=== PATIENT | male | born 1985 ===

== ENCOUNTER 2017-12-08 09:53 | Emergency (ER) | payer OTHER ==
[2017-12-08] MEDS ORDERED: Sodium Chloride 0.9% 10 ML Syringe FLUSH PRN (10:23)
[2017-12-08] MEDS ORDERED: Sodium Chloride 0.9% 1,000 ML IV STA (10:23)
[2017-12-08] MEDS ORDERED: Ketorolac 30 MG/ML SDV IVPUSH ONE (10:24)
[2017-12-08] MEDS ORDERED: Ibuprofen 800 MG Tab PO ONE (10:57)
--- NOTE | 2017-12-08 10:59 | EDM.PDOC ---
ED HPI GENERAL MEDICAL PROBLEM - General Chief Complaint: General Stated Complaint: BACK PAIN - NAUSEA,CHILLS Time Seen by Provider: 12/08/17 10:13 Source of Information: Reports: Patient History Limitations: Reports: No Limitations - History of Present Illness INITIAL COMMENTS - FREE TEXT/NARRATIVE: The patient presents with a fever, chills, generalized weakness and low back pain. This all started about 5 days ago. He is building a house and he thought initially his back hurt from that. He then developed the fever and chills. He gets night sweats. He has no headache but he does have some neck pain at times. He has no cough. He has no abdominal pain, nausea or vomiting. He does not have much of an appetite. He has no medical problems. He has no dysuria. He has been outside a lot lately. He is worried this could be [place]. He also has joint pain. His elbows hurt and his knees at times. Onset: Gradual Duration: Day(s): (5) Location: Reports: Back Quality: Reports: Sharp Severity: Moderate Improves with: Reports: Immobilization Worsens with: Reports: Movement Context: Reports: Activity (He is currently building a house) Associated Symptoms: Reports: Fever/Chills, Nausea/Vomiting. Denies: Chest Pain , Cough, Headaches, Shortness of Breath Back Pain Score (Numeric/FACES): 8 - Related Data Allergies Allergy/AdvReac Type Severity Reaction Status Date / Time Sulfa (Sulfonamide Allergy Cannot Verified 12/08/17 10:02 Antibiotics) Remember Home Meds: Home Meds . [No Known Home Meds] 12/08/17 [History] Past Medical History - Past Health History Medical/Surgical History: Denies Medical/Surgical History Social & Family History - Tobacco Use Smoking Status *Q: Never Smoker Second Hand Smoke Exposure: No - Caffeine Use Caffeine Use: Reports: Coffee - Recreational Drug Use Recreational Drug Use: No ED ROS GENERAL - Review of Systems Review Of Systems: See Below Constitutional: Reports: Fever, Chills, Malaise, Weakness, Fatigue, Night Sweats HEENT: Reports: No Symptoms Respiratory: Reports: No Symptoms Cardiovascular: Reports: No Symptoms Endocrine: Reports: No Symptoms GI/Abdominal: Reports: No Symptoms : Reports: No Symptoms ED EXAM, GENERAL - Physical Exam Exam: See Below Exam Limited By: No Limitations General Appearance: Alert, No Apparent Distress Ears: Normal External Exam Nose: Normal Inspection Head: Atraumatic, Normocephalic Neck: Normal Inspection Respiratory/Chest: No Respiratory Distress, Lungs Clear, Normal Breath Sounds Cardiovascular: Regular Rate, Rhythm, No Edema, No Murmur GI/Abdominal: Soft, Non-Tender, No Organomegaly, No Mass Back Exam: Other (Mild pain upon palpation to his low back) Extremities: Normal Inspection, Non-Tender Neurological: Alert, Oriented, No Motor/Sensory Deficits Course - Vital Signs Last Recorded V/S: Last Vital Signs Temp 98.7 F 12/08/17 09:57 Pulse 93 12/08/17 09:57 Resp 18 12/08/17 09:57 BP Pulse Ox 100 12/08/17 09:57 - Orders/Labs/Meds Orders: Active Orders 24 hr Category Date Time Status Peripheral IV Care [RC] . DIRECTED Care 12/08/17 10:24 Active Chest 2V [CR] Stat Exams 12/08/17 10:23 Taken Lumbar Spine 2 or 3V [CR] Stat Exams 12/08/17 10:24 Taken UA W/MICROSCOPIC [URIN] Stat Lab 12/08/17 12:10 Ordered [place] VIRUS ANTIBODY,SERUM [REF] Stat Lab 12/08/17 10:30 Received Sodium Chloride 0.9% [Saline Flush] Med 12/08/17 10:23 Active 10 ml FLUSH ASDIRECTED PRN Peripheral IV Insertion Adult [OM.PC] Stat Oth 12/08/17 10:23 Ordered Medication Orders Sodium Chloride (Saline Flush) 10 ml FLUSH ASDIRECTED PRN PRN Reason: Keep Vein Open Last Admin: 12/08/17 10:48 Dose: 10 ml Labs: Laboratory Tests 12/08/17 12/08/17 12/08/17 Range/Units 10:30 10:30 10:30 WBC 2.78 L (4.23-9.07) K/mm3 RBC 5.02 (4.63-6.08) M/mm3 Hgb 14.5 (13.7-17.5) gm/L Hct 42.5 (40.1-51.0) % MCV 84.7 (79.0-92.2) fl MCH 28.9 (25.7-32.2) pg MCHC 34.1 (32.2-35.5) g/dl RDW Std Deviation 41.1 (35.1-43.9) fL Plt Count 162 L (163-337) K/mm3 MPV 9.8 (9.4-12.3) fl Neut % (Auto) 58.0 (34.0-67.9) % Lymph % (Auto) 24.8 (21.8-53.1) % [place] % (Auto) 16.5 H (5.3-12.2) % Eos % (Auto) 0.7 L (0.8-7.0) Baso % (Auto) 0.0 L (0.1-1.2) % Neut # (Auto) 1.61 L (1.78-5.38) K/mm3 Lymph # (Auto) 0.69 L (1.32-3.57) K/mm3 [place] # (Auto) 0.46 (0.30-0.82) K/mm3 Eos # (Auto) 0.02 L (0.04-0.54) K/mm3 Baso # (Auto) 0.00 L (0.01-0.08) K/mm3 Manual Slide Review Abnormal smear Sodium 136 (136-145) mEq/L Potassium 3.7 (3.5-5.1) mEq/L Chloride 99 (98-107) mEq/L Carbon Dioxide 30 (21-32) mEq/L Anion Gap 10.7 (5-15) BUN 12 (7-18) mg/dL Creatinine 1.0 (0.7-1.3) mg/dL Est Cr Clr Drug Dosing 99.15 mL/min Estimated GFR (MDRD) > 60 (>60) mL/min BUN/Creatinine Ratio 12.0 L (14-18) Glucose 83 (74-106) mg/dL Calcium 8.5 (8.5-10.1) mg/dL Total Bilirubin 0.3 (0.2-1.0) mg/dL AST 255 H (15-37) U/L ALT 358 H (16-63) U/L Alkaline Phosphatase 118 H (46-116) U/L Total Protein 8.0 (6.4-8.2) g/dl Albumin 4.1 (3.4-5.0) g/dl Globulin 3.9 gm/dL Albumin/Globulin Ratio 1.1 (1-2) Urine Color (Yellow) Urine Appearance (Clear) Urine pH (5.0-8.0) Ur Specific [place] (1.005-1.030) Urine Protein (Negative) Urine Glucose (UA) (Negative) Urine Ketones (Negative) Urine Occult Blood (Negative) Urine Nitrite (Negative) Urine Bilirubin (Negative) Urine Urobilinogen (0.2-1.0) Ur Leukocyte Esterase (Negative) Urine RBC (0-5) /hpf Urine WBC (0-5) /hpf Ur Epithelial Cells (0-5) /hpf Urine Bacteria (FEW) /hpf Urine Mucus (FEW) /hpf Monoscreen Negative (NEGATIVE) 12/08/17 Range/Units 12:10 WBC (4.23-9.07) K/mm3 RBC (4.63-6.08) M/mm3 Hgb (13.7-17.5) gm/L Hct (40.1-51.0) % MCV (79.0-92.2) fl MCH (25.7-32.2) pg MCHC (32.2-35.5) g/dl RDW Std Deviation (35.1-43.9) fL Plt Count (163-337) K/mm3 MPV (9.4-12.3) fl Neut % (Auto) (34.0-67.9) % Lymph % (Auto) (21.8-53.1) % [place] % (Auto) (5.3-12.2) % Eos % (Auto) (0.8-7.0) Baso % (Auto) (0.1-1.2) % Neut # (Auto) (1.78-5.38) K/mm3 Lymph # (Auto) (1.32-3.57) K/mm3 [place] # (Auto) (0.30-0.82) K/mm3 Eos # (Auto) (0.04-0.54) K/mm3 Baso # (Auto) (0.01-0.08) K/mm3 Manual Slide Review Sodium (136-145) mEq/L Potassium (3.5-5.1) mEq/L Chloride (98-107) mEq/L Carbon Dioxide (21-32) mEq/L Anion Gap (5-15) BUN (7-18) mg/dL Creatinine (0.7-1.3) mg/dL Est Cr Clr Drug Dosing mL/min Estimated GFR (MDRD) (>60) mL/min BUN/Creatinine Ratio (14-18) Glucose (74-106) mg/dL Calcium (8.5-10.1) mg/dL Total Bilirubin (0.2-1.0) mg/dL AST (15-37) U/L ALT (16-63) U/L Alkaline Phosphatase (46-116) U/L Total Protein (6.4-8.2) g/dl Albumin (3.4-5.0) g/dl Globulin gm/dL Albumin/Globulin Ratio (1-2) Urine Color Yellow (Yellow) Urine Appearance Clear (Clear) Urine pH 6.5 (5.0-8.0) Ur Specific [place] > or = 1.030 (1.005-1.030) Urine Protein 1+ H (Negative) Urine Glucose (UA) Negative (Negative) Urine Ketones Negative (Negative) Urine Occult Blood Negative (Negative) Urine Nitrite Negative (Negative) Urine Bilirubin Negative (Negative) Urine Urobilinogen 0.2 (0.2-1.0) Ur Leukocyte Esterase Negative (Negative) Urine RBC Not seen (0-5) /hpf Urine WBC 0-5 (0-5) /hpf Ur Epithelial Cells Not seen (0-5) /hpf Urine Bacteria Rare (FEW) /hpf Urine Mucus Few (FEW) /hpf Monoscreen (NEGATIVE) Meds: Medications Generic Name Dose Route Start Last Admin Trade Name Freq PRN Reason Stop Dose Admin Sodium Chloride 10 ml 12/08/17 10:23 12/08/17 10:48 Saline Flush FLUSH 10 ml ASDIRECTED PRN Administration Keep Vein Open Discontinued Medications Generic Name Dose Route Start Last Admin Trade Name Freq PRN Reason Stop Dose Admin Sodium Chloride 1,000 mls @ 1,000 mls/hr 12/08/17 10:23 12/08/17 10:47 Normal Saline IV 12/08/17 11:22 1,000 mls/hr .BOLUS STA Administration Ibuprofen 800 mg 12/08/17 10:57 12/08/17 11:09 Motrin PO 12/08/17 10:58 800 mg ONETIME ONE Administration Ketorolac Tromethamine 30 mg 12/08/17 10:24 12/08/17 10:58 Toradol IVPUSH 12/08/17 10:25 Not Given ONETIME ONE - Re-Assessments/Exams Free Text/Narrative Re-Assessment/Exam: 12/08/17 12:38 I ordered an IV NS 1L bolus, toradol 30mg IV, labs and UA. The patient did not want any IV meds so I ordered some motrin 800mg by mouth. His WBC was low at 2.78. His AST was elevated at 255. His ALT was elevated at 358. His Alk Phos was elevated at 118. His UA shows no UTI. His monoscreen was negative. It will be a few days to a week for the [place]. The x-ray of his chest looks good. The x-ray of is lumbar spine looks good. He says he has been drinking more lately. He has some beers after working on his house. I feel this is a viral syndrome this could possibly be [place]. It is symptomatic treatment. Departure - Departure Time of Disposition: 12:40 Disposition: Home, Self-Care 01 Condition: Good Clinical Impression: Viral syndrome, Elevated liver enzymes - Discharge Information *PRESCRIPTION DRUG MONITORING PROGRAM REVIEWED*: No *COPY OF PRESCRIPTION DRUG MONITORING REPORT IN PATIENT [place]: No Referrals: PCP,None [Primary Care Provider] - Saray Oliver NP [ED Midlevel Provider] - 1 Week Forms: ED Department Discharge Additional Instructions: Drink plenty of fluids. Take motrin or aleve for fever or pain. Avoid tylenol. It can be hard on your liver. Stop drinking until your liver has recovered. Follow up in 1 to 2 weeks to have your liver enzymes rechecked. Please return if you are worse. - My Orders Last 24 Hours: My Active Orders 12/08/17 10:23 Chest 2V [CR] Stat Sodium Chloride 0.9% [Saline Flush] 10 ml FLUSH ASDIRECTED PRN Peripheral IV Insertion Adult [OM.PC] Stat 12/08/17 10:24 Peripheral IV Care [RC] . DIRECTED Lumbar Spine 2 or 3V [CR] Stat 12/08/17 10:30 [place] VIRUS ANTIBODY,SERUM [REF] Stat 12/08/17 12:10 UA W/MICROSCOPIC [URIN] Stat - Assessment/Plan Last 24 Hours: My Active Orders 12/08/17 10:23 Chest 2V [CR] Stat Sodium Chloride 0.9% [Saline Flush] 10 ml FLUSH ASDIRECTED PRN Peripheral IV Insertion Adult [OM.PC] Stat 12/08/17 10:24 Peripheral IV Care [RC] . DIRECTED Lumbar Spine 2 or 3V [CR] Stat 12/08/17 10:30 [place] VIRUS ANTIBODY,SERUM [REF] Stat 12/08/17 12:10 UA W/MICROSCOPIC [URIN] Stat
--- NOTE | 2017-12-10 09:37 | CR ---
Chest: Two views of the chest were obtained. Comparison: No prior chest x-ray. Heart size and mediastinum are within normal limits. Lungs are clear. Bony structures are within normal limits for the patient's age. Impression: 1. Nothing acute is seen on two-view chest x-ray. Diagnostic code #1
--- NOTE | 2017-12-10 09:37 | CR ---
Lumbar spine: AP, lateral and cone down lateral views centered to the lumbosacral junction were obtained. Slight posterior disc space narrowing is noted at L5-S1. Other disc spaces are maintained. Vertebral body heights are maintained. Pedicles as well as transverse and spinous processes are intact. Sacroiliac joints appear within normal limits. No subluxation is seen. No acute abnormality is identified. Impression: 1. Slight posterior disc space narrowing at L5-S1. 2. Three-view lumbar spine study is otherwise unremarkable. Diagnostic code #2
== END 2017-12-08 13:00 | disposition home or self-care (01) ==
LOC: JD.ED 09:53
DX: B34.9 Viral infection, unspecified (principal); R74.8 Abnormal levels of other serum enzymes; Z88.2 Allergy status to sulfonamides
CPT/HCPCS: 36415; 71046; 72100; 80053; 81001; 85025; 86308; 86788; 96360; 99284; A9270; J7040; J7050